=== PATIENT | male | born 1985 | race Caucasian/White ===

== ENCOUNTER 2018-02-25 11:46 | Emergency (ER) | payer OTHER ==
[~2018-02-25] VITALS: Ht 182.9 cm; Wt 100.0 kg
[2018-02-25] MEDS ORDERED: ondansetron 4mg rapidly disintigrating tab PO ONE (12:30)
[2018-02-25] MEDS ORDERED: meclizine 12.5mg tablet PO ONE (12:30)
[2018-02-25] MEDS ORDERED: METH500T PO (13:31)
[2018-02-25] MEDS ORDERED: MECL-111 PO (13:31)
[2018-02-25] MEDS ORDERED: METH4TAB3 PO (13:31)
[2018-02-25] MEDS ORDERED: ONDA4TAB9 SL (13:31)
[2018-02-25] MEDS ORDERED: dexamethasone 4mg tablet PO ONE (13:40)
[2018-02-25 13:58] VITALS: BP 127/74
== END 2018-02-25 14:00 | disposition home or self-care (01) ==
LOC: ER 11:47
DX: F07.81 Postconcussional syndrome (principal); H93.13 Tinnitus, bilateral; M51.26 Other intervertebral disc displacement, lumbar region; M54.41 Lumbago with sciatica, right side; Z79.899 Other long term (current) drug therapy
CPT/HCPCS: 70450; 72131; 99284; J8540; J8597